=== PATIENT | male | born 1950 | race Caucasian/White ===

== ENCOUNTER 2021-02-09 09:30 | Day surgery (SDC) | payer MEDICARE, MEDICAID ==
[~2021-02-09] VITALS: Ht 167.6 cm; Wt 87.1 kg
[~2021-02-09 09:30] MED LIST: 0.9 % SODIUM CHLORIDE 20 ML VIAL. IJ ONE; ASPI-630 PO; HYDROmorphone 2 MG/ML VIAL IVP PRN; IV RINGERS,LACTATED 1000ML 1,000 ML IV SCH; MORPHINE SULFATE 2 MG/ML VIAL. IVP PRN; NAPR220T70 PO; PROCHLORPERAZINE 10 MG/2 ML VIAL. IVP PRN; fentaNYL PF VIAL 100 MCG/2 ML VIAL IVP PRN
[2021-02-09] MEDS ORDERED: LIDOCAINE 1% Multi-Dose 20 ML VIAL. ONE (09:44)
[2021-02-09] MEDS ORDERED: HYDR-2761 PO (10:15)
--- NOTE | 2021-02-09 10:16 | DISCH ---
DISCHARGE INSTRUCTIONS Condition on Discharge Condition on Discharge: Stable Activity After Discharge Activity Instructions for Disc: Other, see below (Avoid hard grasping; may use the hand for fine motor use such as eating writing and typing) Lifting Instructions after Dis: No heavy lifting Weight Bearing Status after Di: Non weight bearing Diet after Discharge Diet after Discharge: Regular Wound Incision Care Wound/Incision Care: Do not change dressing (Keep dressing intact unless soiled or wet) Contacting the DRAri[facility] after DC Call your doctor for: Concerns you may have Follow-Up Follow up with: Dr. Curran or Jody 10 days GENARO CURRAN MD Feb 09, 2021 10:16
[2021-02-09] MEDS ORDERED: BUPIVACAINE MPF 0.5% 30 ML VIAL. ONE (10:36)
[2021-02-09 11:25] VITALS: BP 96/67
--- NOTE | 2021-02-09 16:46 | PDOC4 ---
Operative Note Operative Note Date of surgery: 02/09/2021 Preoperative diagnosis: Left carpal tunnel syndrome Postoperative diagnosis: Same with moderate median nerve compression Operative procedure: Left carpal tunnel release Surgeon: Bina Anesthesia: [place] block was ineffective and supplemented by local anesthetic and sedation Assist: Lorenzo weston assist Estimated blood loss: 2 cc Complications: None Operative indications: Patient has worsening paresthesia in the median nerve distribution on the both hands and EMG verification of bilateral carpal tunnel syndrome with the numbness symptoms on the left hand being worse. I had gone over with him the risks benefits postoperative course of carpal tunnel release i ncluding the possibility of infection nerve or blood vessel damage incisional area pain and the possibility of incomplete relief. All his questions were answered he wishes to proceed with surgical evaluation and treatment Operative text: Patient was identified procedure verified patient placed in the supine position on the operating table. After adequate amounts of local anesthe gabriel were administered the left upper extremity was prepped and draped in standard sterile fashion with an upper arm tourniquet. After timeout was performed patient procedure identified and verified the left upper extremity exsanguinated by Esmarch bandage and tourniquet inflated to 250 mmHg. A longitudinal incision was made just distal to the distal palmar crease dissection carried out to identify the transverse carpal ligament which was divided longitudinally under direct vision and verified visually and palpably to be released completely to its proximal and distal extent. Recurrent branch was identified and preserved and the tendons were noted to be free from synovitis. Median nerve was noted to have moderate compression. Thorough irrigation carried with normal saline solution skin closure accomplished with nylon suture in a vertical mattress fashion sterile soft dressings were applied fingers were noted be warm pink following deflation of the tourniquet patient returned to recovery room in stable condition having tolerated procedure well. Lorenzo weston assist present for the procedure and assisted with patient positioning prepping draping retraction closure and dressings GENARO PRESCOTT MD Feb 09, 2021 16:46
== END 2021-02-09 11:50 | disposition home or self-care (01) ==
LOC: SURG 09:30 → EDUNIT# 11:15 → SURG 11:50
PROVIDERS: ATTEND Orthopaedic Surgery
DX: G56.02 Carpal tunnel syndrome, left upper limb (principal); I10 Essential (primary) hypertension; E78.00 Pure hypercholesterolemia, unspecified; M19.90 Unspecified osteoarthritis, unspecified site; Z87.891 Personal history of nicotine dependence; Z79.82 Long term (current) use of aspirin; Z79.899 Other long term (current) drug therapy; Z98.890 Other specified postprocedural states
CPT/HCPCS: 64721; A4930; J0690; J3490; A4657; A6452

== ENCOUNTER 2021-03-30 06:54 | Day surgery (SDC) | payer MEDICARE, MEDICAID ==
[~2021-03-30] VITALS: Ht 167.6 cm; Wt 86.0 kg
[~2021-03-30 06:54] MED LIST changes: -0.9 % SODIUM CHLORIDE 20 ML VIAL. IJ ONE; +HYDR-2761 PO
[2021-03-30] MEDS ORDERED: LOSA1TAB25 PO (07:17)
[2021-03-30] MEDS ORDERED: ATOR10TA60 PO (07:18)
--- NOTE | 2021-03-30 07:33 | DISCH ---
DISCHARGE INSTRUCTIONS Condition on Discharge Condition on Discharge: Stable Activity After Discharge Activity Instructions for Disc: Other, see below (Avoid hard grasping, fine motor use allowed such as eating writing typing as tolerated) Lifting Instructions after Dis: No heavy lifting Weight Bearing Status after Di: Non weight bearing (Avoid pressing on the incision until healed 2 to 3 weeks) Diet after Discharge Diet after Discharge: Regular Wound Incision Care Wound/Incision Care: Ice to area for comfort, Keep wound elevated, Do not change dressing (Keep dressing on until suture removal appointment unless soiled, may replace with Band-Aid if necessary) Contacting the after DC Call your doctor for: Concerns you may have Follow-Up Follow up with: Dr. Curran or Jody 10 days GENARO CURRAN MD Mar 30, 2021 07:33
[2021-03-30] MEDS ORDERED: BUPIVACAINE MPF 0.25% 30 ML VIAL. ONE (07:48)
[2021-03-30] MEDS ORDERED: fentaNYL PF VIAL 100 MCG/2 ML VIAL ONE (07:51)
[2021-03-30] MEDS ORDERED: MIDAZOLAM HCL/PF 2 MG/2 ML VIAL. ONE (07:51)
[2021-03-30] MEDS ORDERED: LIDOCAINE 1% PF 30 ML VIAL. ONE (07:52)
[2021-03-30] MEDS ORDERED: KETOROLAC 30 MG/ML VIAL. ONE (08:00)
[2021-03-30] MEDS ORDERED: PROPOFOL 10 MG/ML (20ML) VIAL. IV ONE (08:09)
[2021-03-30] MEDS ORDERED: HYDROcodone/APAP 5/325MG 1 TAB TABLET PO ONE (09:00)
[2021-03-30] MEDS ORDERED: HYDROcodone/APAP 5/325MG 1 TAB TABLET ONE (09:03)
[2021-03-30 09:09] VITALS: BP 155/80
--- NOTE | 2021-03-30 09:10 | PDOC4 ---
Operative Note Operative Note Date of surgery: 03/30/2021 Preoperative diagnosis: Right carpal tunnel syndrome and de Quervain's tenosynovitis Postoperative diagnosis: Same with severe median nerve compression Operative procedure: Right carpal tunnel release, right first dorsal compartment release Surgeon: Bina Assist: Lorenzo weston assistant Anesthesia: General Estimated blood loss: 1 cc Complications: None Operative indications: Jony has severe pain with numbness in the median nerve distribution as well as radial sided wrist pain unresponsive to nonoperative treatment. We had previously had a detailed discussion about the expected postoperative recovery process and covered that this procedure only takes p ressure off the compressed nerve and relief may be incomplete as it is dependent on healing. There is also possibility of nerve or blood vessel damage infection medical or other anesthetic complications among others. He agrees to proceed with surgical evaluation and treatment Operative text: Patient was identified procedure verified patient placed in the supine position on the operating table. After adequate amounts of Shaun block anesthesia were administered the right upper extremity was prepped and draped in standard sterile fashion. After timeout was performed patient procedure identified and verified a longitudinal incision was made just distal to the distal wrist crease dissection carried out down to the transverse carpal ligament which was divided under direct vision with scalpel and tenotomy scissors. Full release was verified both visually and palpably. Median nerve was noted to have severe nerve compression and although there was significant fluid return on release of the transverse carpal ligament no synovitis or abnormality of the flexor tendons was noted. An incision was made over the first dorsal compartment and the retinaculum released. Underlying tendons were intact and similarly a return of fluid was obtained from the proximal and distal aspects of the tendon sheath around where the first compartment was compressed. Thorough irrigation carried out normal saline solution, incisions were closed with nylon suture in vertical mattress fashion. Sterile soft dressings were applied patient was returned to recovery room stable condition having tolerated procedure well. Fingers were noted be warm pink on deflation of the tourniquet. Lorenzo wilson assisted in patient positioning prepping draping retraction and closure and dressings GENARO PRESCOTT MD Mar 30, 2021 09:10
== END 2021-03-30 09:22 | disposition home or self-care (01) ==
LOC: SURG 06:54
PROVIDERS: ATTEND Orthopaedic Surgery
PROC: 01N50ZZ Release Median Nerve, Open Approach (ICD-10-PCS; principal; 2021-03-30 08:30)
DX: G56.01 Carpal tunnel syndrome, right upper limb (principal); M65.4 Radial styloid tenosynovitis [de Quervain]; I10 Essential (primary) hypertension; E78.00 Pure hypercholesterolemia, unspecified; K21.9 Gastro-esophageal reflux disease without esophagitis; M19.90 Unspecified osteoarthritis, unspecified site; Z87.891 Personal history of nicotine dependence; Z79.82 Long term (current) use of aspirin; Z79.899 Other long term (current) drug therapy; Z98.890 Other specified postprocedural states
CPT/HCPCS: 25000; 64721; A4930; J0690; J1885; J2704; J3490; A4657; A6452; J2250; J3010